=== PATIENT | female | born 1990 | race Caucasian/White ===

== ENCOUNTER 2025-03-26 17:30 | Emergency (ER) | payer BC ==
[2025-03-26 20:33] LABS: #Basophils 0.2 thou/uL (0.0-0.2); #Eosinophils 0.1 thou/uL (0.0-0.7); #Lymphocytes 1.5 thou/uL (1.20-3.40); #Monocytes 0.6 thou/uL (0.11-0.59); #Neutrophils 16.5 thou/uL (1.40-6.50); %Basophils 1.1 % (0.0-1.0); %Eosinophils 0.3 % (0.0-10.0); %Lymphocytes 7.9 % (21.0-51.0); %Monocytes 2.9 % (0.0-10.0); %Neutrophils 87.8 % (42.0-75.0); Hematocrit 40.1 % (36.0-47.0); Hemoglobin 14.6 g/dL (12.0-16.0); Mean Corpuscular Hemoglobin 27.4 pg (27.0-31.0); Mean Corpuscular Volume 75.4 fl (78.0-98.0); Platelet Count 341 10x3/uL (130-400); Red Blood Cell (RBC) Count 5.32 mill/uL (4.20-5.40); White Blood Cell (WBC) Count 18.8 10x3/uL (4.8-10.8)
[2025-03-26 20:53] LABS: ALT (SGPT) 21 U/L (Less than 34); AST (SGOT) 21 U/L (11-34); Albumin 3.9 g/dL (3.1-4.5); Alkaline Phosphatase 68 U/L (40-110); Anion Gap 19 mmol/L (10-20); BUN (Urea Nitrogen) 13 mg/dL (7.0-18.7); Bilirubin, Total 0.8 mg/dL (0.3-1.2); Calc. Creatinine Clearance 0 mL/min (70-130); Calcium 9.0 mg/dL (7.8-10.44); Carbon Dioxide 21 mmol/L (22-29); Chloride 105 mmol/L (98-107); Globulin 3.3 g/dL (2.4-3.5); Glucose 124 mg/dL (70-105); Lipase 14 U/L (8-78); Potassium 4.1 mmol/L (3.5-5.1); Sodium 141 mmol/L (136-145)
== END 2025-03-26 22:57 | disposition home or self-care (01) ==
LOC: BURERS 17:30
DX: H81.11 Benign paroxysmal vertigo, right ear (principal); R11.2 Nausea with vomiting, unspecified; I10 Essential (primary) hypertension; Z79.899 Other long term (current) drug therapy; Z55.6 Problems related to health literacy; Z75.3 Unavailability and inaccessibility of health-care facilities
CPT/HCPCS: 36415; 80053; 83690; 85025; 99284; Q0162